=== PATIENT | female | born 1975 | race Caucasian/White ===

== ENCOUNTER 2016-11-18 15:52 | Emergency (ER) | payer OTHER ==
[~2016-11-18] VITALS: Ht 157.5 cm; Wt 96.6 kg
[2016-11-18 19:36] VITALS: BP 108/71
== END 2016-11-18 19:36 | disposition home or self-care (01) ==
LOC: ED 15:52
DX: S89.92XA Unspecified injury of left lower leg, initial encounter (principal); Z88.6 Allergy status to analgesic agent; W17.89XA Other fall from one level to another, initial encounter; Y93.89 Activity, other specified; Y99.8 Other external cause status; Y92.89 Other specified places as the place of occurrence of the external cause

== ENCOUNTER 2017-01-14 07:52 | Emergency (ER) | payer OTHER ==
[2017-01-14 08:55] VITALS: BP 131/68
== END 2017-01-14 08:55 | disposition home or self-care (01) ==
LOC: ED 07:52
DX: G56.03 Carpal tunnel syndrome, bilateral upper limbs (principal); E66.9 Obesity, unspecified; Z88.8 Allergy status to other drugs, medicaments and biological substances